=== PATIENT | female | born 1990 | race Caucasian/White ===

== ENCOUNTER 2024-09-20 18:54 | Emergency (ER) | payer OTHER, SELFPAY ==
[2024-09-20 18:55] VITALS: BP 141/90; PULSE 106; RESP 16; TEMP 36.6; O2SAT 98; BMI 19.0
--- NOTE | 2024-09-20 19:00 | ED.WOUNDLAC ---
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 Reports accidentally cutting the finger pad of her left thumb with a knife while cooking. Reports the area bled for approx 1 hour, prompting her to come to the ED for further evaluation. Wound is dressed on arrival. Denies any retained FB. No other injury. Believes her last tetanus was in in 2014. Denies numbness/tingling/weakness to the left hand. Related Data Allergies Allergy/AdvReac Type Severity Reaction Status Date / Time No Known Allergies Allergy Verified 09/20/24 18:58 Review of Systems Review of Systems: Constitutional: No fever, chills, fatigue, night sweats, weight changes ENT/Mouth: No ear pain, hearing loss, nasal congestion, sinus pain, rhinorrhea, sore throat Eyes: No eye pain, swelling, redness, vision changes, discharge Cardio: No chest pain, palpitations, CASILLAS, orthopnea, peripheral edema Pulm: No SOB, cough, sputum, wheezing, dyspnea, hemoptysis GI: No nausea, vomiting, hematemesis, abdominal pain, diarrhea, constipation, hematochezia, melena : No irregular bleeding, dysuria, frequency, urgency, hesitancy, hematuria, flank pain, urinary flow changes, urinary incontinence or retention MSK: No back pain, neck pain, joint pain, myalgias Skin: No lesions, rashes, +laceration to L tumb Neuro: No weakness, numbness, paresthesias, LOC, dizziness, headache Psych: No anxiety/panic, depression, SI/HI, AH/VH All other systems reviewed and are negative. [facility] Past Medical History Attestation statement: The following information was validated with the patient. Source: old records reviewed and nursing notes reviewed Social History Social History Advance Directives: No Advance Directives Information Provided: No Do you have a plan to hurt others: No Plan Physical Exam Vital Signs: Vital Signs: Last Vital Signs Temp 97.9 F 09/20/24 19:48 Pulse 106 H 09/20/24 19:48 Resp 16 09/20/24 19:48 BP 141/90 H 09/20/24 19:48 Pulse Ox 98 09/20/24 19:48 BMI result Body Mass Index 19.0 Hypertensive, tachycardic General: Well appearing, in no acute distress. Skin: +2 cm linear superficial laceration noted to finger pad of left thumb. Bleeding controlled. No retained foreign body. No involvement of deeper structures. Full ROM intact to MCP and DIP. Sensation intact. Finger strength intact. Head: Normocephalic, atraumatic. Ext: +see above Neuro: AOx3. Normal speech. Ambulating with steady gait. Course Course Course Narrative: Laceration thoroughly cleaned. Repaired with 7 3-0 nylon sutures. See procedure note for details. Patient tolerated well. No need for imaging at this time. Tdap booster updated. Advised to return in 7-10 days for suture removal. Patient has remained stable throughout ED visit today. Discussed worrisome signs and symptoms and when to return to the ED. All questions answered at this time. Patient is agreeable with disposition and stable for discharge. Medications Administered Discontinued Medications Generic Name Dose Route Start Last Admin Trade Name Freq PRN Reason Stop Dose Admin Diphtheria/Tetanus/Acell Pertussis 0.5 ml 09/20/24 19:01 09/20/24 19:30 Diphth,Pertus(Acell),Tet Adult 0.5 Ml Syringe IM 09/20/24 19:02 0.5 ml .ONCE ONE Administration Lidocaine HCl 10 ml 09/20/24 19:01 09/20/24 19:29 Lidocaine Hcl 1 % Mpf 5 Ml Vial INFILTRATI 09/20/24 19:02 10 ml ONCE ONE Administration Medical Decision Making Medical Decision Making MDM Narrative: 34 year old right-hand dominant female presents to the ED today for evaluation of laceration to left thumb sustained 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 Patient is hypertensive and tachycardic. Well-appearing. There is a 2 cm linear superficial laceration noted to finger pad of left thumb. Bleeding controlled. No retained foreign body. No involvement of deeper structures. Full ROM intact to MCP and DIP. Sensation intact. Finger strength intact. Differential diagnosis includes abrasion, laceration. Unlikely retained foreign body, ligament/tendon injury, fracture. Plan for Tdap booster, laceration repair and disposition. Differential Diagnosis Differential Diagnoses: The differential diagnosis associated with the presentation includes As above Admission/Observation Not indicated Prescription Management I considered prescription management with: Pain Medication Social Determinants Patient?s care significantly limited by Social Determinants of Health including: Other Social Determinant of Health Procedures Laceration Laceration 1: Site: hand Side (If applicable): left Size (cm): 2 Description: linear Depth: simple, single layer Local Anesthetic: lidocaine 1% Amount of anesthesia used (mL): 10 Pre-repair: wound explored Skin layer closed with: nylon Size (cm): 3-0 Number of sutures: 7 Technique: simple, interrupted Nerve Block Nerve Block 1: Time out performed: Yes Local Anesthetic: lidocaine 1% Amount of anesthesia used (mL): 10 Side: left Nerve Blocks: digital Procedure Successful: Yes Patient Tolerated Procedure: well Complications: none Critical Care Time Critical Care Time Critical Care Time: No Discharge Plan Discharge Clinical Impression: Finger laceration Patient Disposition: Home, Self-Care Instructions: Care For Your Stitches (ED), Laceration (ED) Additional Instructions: You have been evaluated in the Emergency Department today for a laceration to your Your laceration was repaired in the ED with 7 sutures. Your tetanus vaccination was also updated and will be valid for 5-10 years. Please keep the area surrounding the laceration clean and dry. Do not get the area wet for 24 hours. After 24 hours, you may clean the area with a non-scented soap and pat to dry. Please keep the area out of the sunlight for the next 6 months to help prevent scarring.? If you develop redness or swelling at the site of your laceration or note any discharge/ fluid coming from the laceration, please come back to the ER for a wound check. I recommend you take 600mg ibuprofen every 6 hours or tylenol 650mg every 6 hours as needed for pain. If needed, you can alternate these medications so that you take one medication every 3 hours. For example, at noon take ibuprofen, then at 3pm take tylenol, then at 6pm take ibuprofen. Please follow up with your primary care physician in 7-10 days for suture removal. You may also return to the ER or another urgent care facility for this service. Return to the Emergency Department if you experience discharge from your laceration, redness around your laceration, warmth around your laceration, fever, vomiting, numbness, tingling, or any other concerning symptoms. In the case of an emergency call 911. Stand Alone Forms: Work/School Release Interventions: ED Discharge Assessment Last Done: 09/20/24 19:48 Discharge Date/Time: 09/20/24 19:49 Print Language: Upper Sorbian
[2024-09-20] MEDS: Lidocaine HCl 1 % MPF 5 ML VIAL 10 ML INFILTRATI (19:29)
[2024-09-20] MEDS: Diphth,Pertus(ACell),Tet Adult 0.5 ML SYRINGE IM (19:30)
[2024-09-20 19:48] VITALS: BP 141/90; PULSE 106; RESP 16; TEMP 36.6; O2SAT 98
== END 2024-09-20 19:49 | disposition home or self-care (01) ==
PROVIDERS: Emergency Provider Emergency Medicine
DX: S61.012A Laceration without foreign body of left thumb without damage to nail, initial encounter (principal); M79.642 Pain in left hand; W26.0XXA Contact with knife, initial encounter; Y93.G3 Activity, cooking and baking; Y92.9 Unspecified place or not applicable; Y99.8 Other external cause status; Z23 Encounter for immunization
CPT/HCPCS: 12001; 90471; 90715; 99282; 99284; J2003

== ENCOUNTER 2024-11-07 15:31 | Outpatient (AMB) | payer BC, SELFPAY ==
--- OUTSIDE RECORDS SUMMARY | 2024-11-07 15:34 | XMS_ITS | Clinical Summary ---
Author Organization [facility] Address [address] [place] [phone] Phone Care Team Providers Care Dining Server Name Role Phone Pcp, Unknown Primary Care Provider Unavailabl e Allergies No known active allergies Medications aspirin-acetami nophen-caffeine (EXCEDRIN MIGRAINE) 250-250-65 mg per tablet Take by mouth. Active predniSONE (DELTASONE) 20 MG tablet 3 tablets X 3 days, 2 tablets X 3 days , 1 tablet X 3 days 18 tablet 10/11/2024 Active Encounters Date Type Department Care Team Description 10/11/2024 10:12 AM EDT Hospital Encounter Urgent Care [address] [place] [phone] Maday Long CNP 10/11/2024 9:40 AM EDT Office Visit [facility] at [address] [phone] Maday Long CNP Acute right-sided low back pain with right-sided sciatica (Primary Dx) from Last 3 Months Social History Tobacco Use Types Packs/Day Years [...] on file Sexual Orientation Not on file Last Filed Vital Signs Vital Sign Reading Time Taken Comments Blood Pressure 152/94 10/11/2024 10:27 AM EDT Pulse 121 10/11/2024 10:27 AM EDT Temperature 36.1 C (97 F) 10/11/2024 9:54 AM EDT Respiratory Rate 19 10/11/2024 9:54 AM EDT Oxygen Saturation 100% 10/11/2024 9:54 AM EDT Inhaled Oxygen Concentration - - Weight - - Height - - Body Mass Index - - Plan of Treatment Health Maintenance Due Date Last Done Comments DEPRESSION SCREENING 2002 SMOKING Hx and SMOKELESS TOBACCO SCREENING 09/12/2003 HEPATITIS C SCREENING 2008 HIV ONE-TIME SCREENING (18-65 YEARS) 2008 PAP SMEAR 09/12/2011 COVID-19 VACCINE ( season) 2023 06/30/2022, 12/15/2020 Adult Td,Tdap Booster 09/20/2034 09/20/2024 , 07/27/2015, 06/18/2012, Additional history exists HIB VACCINES Completed 12/16/1991, 12/1990, 01/14/1991, Additional history exists MENINGOCOCCAL VACCINES (ACWY) Completed 09/22/2008 HEPATITIS A VACCINES Aged Out No long er eligible based on patient's age to complete this topic MENINGOCOCCAL VACCINES (B) Aged Out N o longer eligible based on patient's age to complete this topic PNEUMOCOCCAL VACCINES (0-49 years) Aged Out No longer eligible based on patient's age to complete this topic Medical Devices Not on file Procedures Procedure Name Priority Date/Time Associated Diagnosis Comments XR LUMBOSACRAL SPINE 4 OR MORE VIEWS Urgent/patient waiting 10/11/2024 10:19 AM EDT Acute right-sided low back pain with right-sided sciatica from Last 3 Months Results * XR LUMBOSACRAL SPINE 4 OR MORE VIEWS (10/11/2024 10:19 AM EDT) Anatomical Region Laterality Modality L-spine Computed Radiogr aphy 10/11/2024 11:0 3 AM EDT Impressions 10/11/2024 11:09 AM EDT No displaced fracture of the lumbar spine. Narrative 10/11/2024 11:09 AM EDT XR LUMBOSACRAL SPINE 4 OR MORE VIEWS Referring clinician's provided indication for this examination in Epic: Pain; no trauma/ + neuropathy, Hx: L4-5 [...] fracture of the lumbar spine. Maday Long TRANSFER STATION ATTENDANT IMG XR SPINE Final Resul t from Last 3 Months Insurance [facility] [employer] Care Teams Dining Server Relationship Specialty Start Date End Date Pcp, Unknown PCP - General 10/11/24 Additional Source Comments The information contained in this document represents components of the legal health record. It is not the complete legal health record.[facility]
--- OUTSIDE RECORDS SUMMARY | 2024-11-07 15:34 | XMS_ITS | Clinical Summary ---
Author Organization [facility] Address [address] [place] [address] Care Team Providers Care Golf Caddie Name Role Phone Angie Wilde MD Primary Care Provider [phone] Allergies No known active allergies Medications L norgest/e.estrad ioL-e.estrad (SEASONIQUE) 0.15 mg-30 mcg (84)/10 mcg (7) per tablet Take 1 tablet by mouth 1 (one) time each day. 09/02/2020 Active aspirin-acetamin ophen-caffeine (EXCEDRIN MIGRAINE) 250-250-65 mg per tablet Take by mouth. Active Active Problems Problem Noted Date Diagnosed Date Migraine without aura 12/07/2009 Overview (04/02/2024): IMO update Underweight 05/23/2005 Immunizations Name Administration Dates Next Due DTP 07/31/1995, 2,03/25/1991,01/14,1990 WHyN-INS-IPI (Pentacel) 2mo to less than 5yo 12/16/1991,03/25/1991,01/14/1991,11/12 Hepatitis B Pediatric (Enger ix B; Recombivax HB) to less than 20 yo 09/18/1996,07/31/1995,06/28/1995 Influenza trivalent, with pr eservative (Fluzone; Afluria) 6mo and older 05/15/2013 [employer] SARS-CoV-2 COVID -19, vector-nr, [id number], preservative free 12/15/2020 MMR, measles mumps and rubel la Live (Priorix; M-M-R II) 12mo and older 09/22/1994,12/16/1991 Meningococcal MCV4P 09/22/2008 OPV 07/31/1995, 2,01/14/1991,11/12 PPD Test 02/21/2011 Td Tetanus diptheria (Tdvax) 7yo and older 08/16/2002 Tdap Tetanus diptheria acell ular pertussis (Boostrix; Adacel) 7yo and older 06/18/2012 Varicella live (Varivax) 12m o and older 06/18/2012,06/27/1995 Surgical History Surgery Date Site/Laterality Comments BACK SURGERY 09/25 PROCEDURE: HISTORICAL BACK SURGERY; COMMENT: herniated disk repair Medical History Medical History Date Comments Undiagnosed cardiac murmurs DX:U ndiagnosed cardiac murmurs; COMMENT: 3 DAYS-RESOLVED BY 2 WKS-NL ECG, CXR Wheezing DX:Wheezing Other symptoms referable to ankle and foot joint 1995 DX:Other symptoms referable to ankle and foot joint; COMMENT: L FOOT MASS 1995 (WART) Underweight DX:Underweight 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; COMMENT: POSTERIOR NECK Influenza with other manifestations 04/21 DX:Influenza with other manifestations Lumbar disc herniation DX:Lumbar disc herniation; COMMENT: L4-5 with herniation, radiculopathy, Dr Holloway Family History Medical History Relation Name Comments Glaucoma Father Lung cancer Maternal Grandmother Hypertension Mother Other: TACHYCARDIA Mother Cancer of Small Bowel Other Hypertension Other PATERNAL SIDE Other: CARDIOPULMO Paternal Grandfather D ECEASED Breast cancer Paternal Grandmother Colon cancer Neg Hx Kidney cancer Neg Hx Ovarian cancer Neg Hx Pancreatic cancer Neg Hx Prostate cancer Neg Hx Uterine cancer Neg Hx Relation Name Status Comments Father Alive [id number] [place] Maternal Grandmother Mother Alive IN Other Paternal Grandfather Paternal Grandmother Social History Tobacco Use Types Packs/Day Years Used Date Smoking Tobacco: Never Smokeless Tobacco: Never Alcohol Use Standard Drinks/Week Comments Yes 0 (1 standard drink = 0.6 oz pur e alcohol) Comments Unknown Sex and Gender Information Value Date Recorded Sex Assigned at Not on file Legal Sex Female 8:43 PM EST Gender Identity Not on file Sexual Orientation Not on file Obstetrics History Last Filed Vital Signs Vital Sign Reading Time Taken Comments Blood Pressure 108/70 04/03/2023 2:27 PM EST Pulse 86 04/03/2023 2:27 PM EST Temperature - - Respiratory Rate - - Oxygen Saturation - - Inhaled Oxygen Concentration - - Weight 63.1 kg (139 lb 3.2 oz) 04/03/2023 2:27 P M EST Height 182.9 cm (6') 04/03/2023 2:27 PM EST Body Mass Index 18.88 04/03/2023 2:27 PM EST Plan of Treatment Health Maintenance Due Date Last Done Comments HIV Screening 05/23/2019 Hepatitis C Screening 05/23/2019 Social Influencers of Health Screening 05/23/2019 DTaP,Tdap,and Td Vaccines (8 - Td or Tdap) 06/18/2022 06/18/2012, 08/16/2002, 07/31/1995, Additional history exists COVID-19 Vaccine () 12/17/2023 12/15/2020 Depression Screening 04/17/2024 Influenza Vaccine (#1) 2024 05/15/2013 Cervical Cancer Screening: HPV 04/03/2028 04/03/2023 HIB Vaccines Completed 12/16/1991, 12/1990, 01/14/1991, Additional history exists MMR Vaccines Completed 09/22/1994, 12/16/1991 IPV Vaccines Completed 07/31/1995, 03/17, 12/16/1991, Additional history exists Hepatitis B Vaccines Completed 09/18/1996, 07/31/1995, 06/28/1995 Meningococcal ACWY Vaccine Completed 09/22/2008 Varicella Vaccines Aged Out 06/18/2012, 06/27/1995 No longer eligible based on patient's age to complete this topic HPV Vaccines Aged Out No longer eligi ble based on patient's age to complete this topic Hepatitis A Vaccines Aged Out No long er eligible based on patient's age to complete this topic Meningococcal B Vaccine Aged Out No l onger eligible based on patient's age to complete this topic Pneumococcal Vaccine: Pediatrics (0 to 5 Years) and At-Risk Patients (6 to 49 Years) Aged Out No longer eligible based on patient's age to complete this topic RSV Immunization Patients Under 20 months Aged Out No longer eligible based on patient's age to complete this topic Procedures Procedure Name Priority Date/Time Associated Diagnosis Comments HPV Routine 04/03/2023 from Last 3 Months or Most Recently Relevant to Health Maintenance Results * Cervical Cancer Screening: HPV (04/03/2023) Cervical Cancer Screening: HPV negative, abstracted Historical Provider HEALTH MAINTENANCE Final Result from Last 3 Months or Most Recently Relevant to Health Maintenance Care Teams Golf Caddie Relationship Specialty Start Date End Date Angie Wilde MD [address] [place] [phone] PCP - General 03/03/22
--- OUTSIDE RECORDS SUMMARY | 2024-11-07 15:34 | XMS_ITS ---
Author Name [facility] Organization Unknown Care Team Organization Name Specialty Phone Email Start Date End Da te [facility] RASHEED GERMAN Primary Care [email or web address] 10/20/2022 12/04/2023 [facility] NULL Primary Care 04/25/2022 12/04/2023 [facility] NULL Primary Care 02/22/2022 12/04/2023
--- NOTE | 2024-11-07 15:49 | MHC.PC.OV ---
Vital Signs 11/07/24 15:55 Height 6 ft Weight 136 lb BMI 18.4 BP 132/82 Blood Pressure Location Lt brachial Position Sitting Respiration 16 Pulse 117 H Pulse Source Pulse Oximeter Temp 98.2 F Temp Source Temporal Artery Scan Pulse Oximetry (%) 98 Oxygen Delivery Method Room Air Intake Visit Reasons: Back pain Intake Note: Charlene presents in the office today to establish care. Patient is suffering from back pain. Allergies No Known Allergies Allergy (Verified 11/07/24 15:51) Tobacco use date assessed: 11/07/24 Dental Screening Dental Screen Date: 11/07/24 Did you have a dental visit in the last 12 months?: Yes Did you have a dental problem in the last 6 months where you did not have access to dental care?: No Was dental information given to patient?: Patient has dentist HPI HPI Comments History of Present Illness Details This is a 34-year-old female with a past medical history of migraines and L4-L5 microdiskectomy presenting for back pain. She is a new patient. The patient had microdiskectomy of L4-L5 due to a herniated disc at age [age] years old. They are unsure why she had the her needed disc, but she notes that several of her family members have similar issues. The surgery was done at [facility] by CHIQUI. Her pain which was in the right sciatic notch radiating down her leg associated with tingling and numbness resolved following surgery. She was told that she had a bulging disc at L5-S1 at that time. She did well up until the 1st week of September when she sat down on her couch and felt something pull in her lower back. She develops severe pain in the right lower back radiating down the right leg associated with tingling and numbness in her leg. She went to [facility] urgent care. She was given a taper of prednisone, and she had a negative x-ray of her lower back. The prednisone helped only a little. She has constant aching, sharp pain every day rated as a 5-9/10. The pain radiates from the right lower back and buttock down her right leg. It is worse when she bends forward or leans back. 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 She is taking ibuprofen 800 mg 3 times a day and acetaminophen 1000 mg 2-3 times per day. It is minimally helpful. She is having a lot of difficulty sleeping. She has been seeing the chiropractor 2-3 times per week since it started in September. She denies loss of bowel or bladder control, numbness or tingling in the saddle distribution or weakness in her legs. No fevers or chills. She has a secondary concern about migraine headaches which she has had since she was an adolescent. She has severe migraines for the 1st 3 days prior to her menstrual period every month. They are associated with nausea and vomiting. She has taken Fioricet in the past. Headaches are associated with light sensitivity. ROS: Constitutional: No unexplained weight loss, fever, chills, fatigue or night sweats. Eyes: No vision changes, blurry vision, double vision, eye pain, eye redness, eye discharge. ENT: No hearing loss, sneezing, congestion, runny nose or sore throat. Respiratory: No shortness of breath, cough or sputum production. Cardiovascular: No chest pain, chest pressure or chest discomfort. No palpitations or pedal edema. Gastrointestinal: No anorexia, nausea, vomiting or diarrhea. No abdominal pain or blood in stool. Genitourinary: No dysuria, hematuria, urinary frequency. Neurologic: No headache, dizziness, syncope, unilateral weakness, ataxia, numbness or tingling in the extremities. Musculoskeletal: No muscle pain, back pain, joint pain or swelling. Hematologic/Lymphatics: No bleeding or bruising. No painful lymph nodes. Skin: No rash or itching. Endocrine: No cold or heat intolerance. No polyuria or polydipsia. Psychiatric: No depression or anxiety. No SI/HI. Physical exam: Constitutional: Alert, in no distress. Neck: Supple, Full range of motion. No lymphadenopathy. No palpable thyroid masses. Respiratory: Clear to auscultation. Cardiovascular: S1 S2 regular. No murmurs Neurologic: No focal neurological deficits. Symmetric patellar reflexes. Moves all extremities spontaneously. Sensation intact bilaterally. Lower extremity strength 5/5 bilaterally. No footdrop. Normal toe walking. Skin: No rashes Musculoskeletal: Limited lumbar flexion and extension, and patient winces during exam. Positive right straight leg raise. Raising the left leg causes pain in the right lower back and sciatic notch. Extremities: Warm and well perfused. No clubbing, cyanosis or edema. Intact peripheral pulses bilaterally. Psychiatric: Normal mood and affect [facility] Medical History (Updated 11/07/24 @ 17:21 by SAPPHIRE Olmos) Screening for cardiovascular condition Lumbosacral radiculitis Intermittent palpitations Degenerative disc disease, lumbar Migraine Surgical History (Updated 11/07/24 @ 16:02 by Azul Quarles MA) History of microdiscectomy Family History (Updated 11/07/24 @ 15:54 by Azul Quarles MA) Mother Hypertension Thyroid disease Father Hypertension Social History (Updated 11/07/24 @ 15:54 by Azul Quarles MA) Housing: House Alcohol intake: never Patient Tobacco Use Status: Never used Tobacco e-Cigarette/Vaping Use: Never Used Second Hand Smoke Exposure: No service: No Current occupational status: employed 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 1. Little interest or pleasure in doing things: not at all 2. Feeling down, depressed, or hopeless: not at all 3. Trouble falling or staying asleep, or sleeping too much: several days 4. Feeling tired or having little energy: several days 5. Poor appetite or overeating: not at all 6. Feeling bad about yourself - or that you are a failure or have let yourself or your family down: not at all 7. Trouble concentrating on things, such as reading the newspaper or watching television: not at all 8. Moving or speaking so slowly that other people could have noticed. Or the opposite - being so fidgety or restless that you have been moving around a lot more than usual: not at all 9. Thoughts that you would be better off or of hurting yourself in some way: not at all Total score: 2 Depression Screening Interpretation: Negative Depression Screening Done: Yes 59332 - PHQ-9 Billing: Yes Source: Developed by Drs. Linwood Strauss, Sejal Rios, Edwardo Campos and colleagues, with an educational jodie from [employer]. Thrive Questionnaire Date Thrive assessed: 11/07/24 I am a: Patient What is your living situation today?: I have a steady place to live Within the past 12 months, did the food you bought not last and you didn't have the money to get more?: Never true Within the past 12 months, did you worry whether your food would run out before you got money to buy more?: Never true Do you have trouble paying for medicines?: No Do you have trouble getting transportation to medical appointments?: No Do you have trouble paying your heating and electricity bill?: No Do you have trouble taking care of your child, family member or friend?: No Do you have trouble with day-to-day activities such as bathing, preparing meals, shopping, managing finances, etc.?: No Are you currently unemployed and looking for a job?: No Are you interested in more education?: No Please select the resources that you would like help with: None Currently or been in a relationship where the following occur: No concerns reported THRIVE Score: 0 AUDIT C Alcohol Use Questionnaire (AUDIT-C) 1. How often do you have a drink containing alcohol?: Never 3. How often do you have six or more drinks on one occasion?: Never Total Score: 0 CARMINA-7 AMB Questionnaire CARMINA-7 Date CARMINA - 7 assessed: 11/07/24 Feeling nervous, anxious, or on edge: 0 = Not at all Not being able to stop or control worryin = Not at all Worrying too much about different things: 0 = Not at all Trouble relaxin = Not at all Being so restless that it is hard to sit still: 0 = Not at all Becoming easily annoyed or irritable: 0 = Not at all Feeling afraid as if something awful might happen: 0 = Not at all Total CARMINA-7 score (0-4 normal; 5-9 mild; 10-14 moderate; 15-21 severe): 0 Source: Developed by Drs. Linwood Strauss, Sejal Rios, Edwardo Campos and colleagues, with an educational jodie from [employer]. CARMINA-7 Assessment Billing CARMINA-7 Assessment Tool: CARMINA-7 Assessment 44731 Physical exam (Primary Care) Vital Signs: Last Vital Signs Temp 98.2 F 11/07/24 15:55 Pulse 117 H 11/07/24 15:55 Resp 16 11/07/24 15:55 BP 132/82 11/07/24 15:55 Pulse Ox 98 11/07/24 15:55 Oxygen Delivery Method Room Air 11/07/24 15:55 BMI result Body Mass Index 18.4 Tobacco/Smoking Status: Tobacco use Status Tobacco use date assessed 11/07/24 11/07/24 16:02 Patient Tobacco Use Status Never used Tobacco 11/07/24 16:02 e-Cigarette/Vaping Use Never Used 11/07/24 16:02 PHQ-9: PHQ-9 Score PHQ-9: Total score 2 11/07/24 16:08 Depression Screening Interpretation: Negative Thrive Assessment: Date of Thrive Assessment Date Thrive assessed 11/07/24 11/07/24 16:02 Currently or been in a relationship where the following occur: No concerns reported Coding Level of Care Code New Pt Level 4 (47091) Complex EM visit Add On G2211 Diagnoses Lumbosacral radiculitis M54.17 Migraine with aura and without status migrainosus, not intractable G43.109 Migraine type: migraine (< 15 days per month) with aura Status migrainosus presence: without status migrainosus Intractability: not intractable Screening for cardiovascular condition Z13.6 Additional Codes CARMINA-7 Assessment Billing - CARMINA-7 Assessment Tool: CARMINA-7 Assessment 14631 ([id number]) PHQ-9 - 67362 - PHQ-9 Billing: Yes ([id number]) Assessment & Plan Assessment & Plan (1) Lumbosacral radiculitis: Code(s): M54.17 - Radiculopathy, lumbosacral region Category: Medical Plan: The patient has failed more than 6 weeks of conservative therapy which included chiropractic intervention, oral steroids and NSAIDs. She had a negative x-ray at urgent care. MRI ordered for further evaluation. I will refer her to the spine clinic. Prescribed sulindac 200 mg twice daily with food as needed. Do not take with other NSAIDs. Side effects reviewed. We will use tramadol for pain control pending further workup and evaluation. We discussed this is a habit-forming medication. It can cause sedation and dizziness. She was advised not to work, drive, operate heavy machinery or drink alcohol with this medicine. Warning signs warranting ER evaluation reviewed. (2) Migraine: Code(s): G43.909 - Migraine, unspecified, not intractable, without status migrainosus Category: Medical Qualifiers: Migraine type: migraine (< 15 days per month) with aura Status migrainosus presence: without status migrainosus Intractability: not intractable Qualified Code(s): G43.109 - Migraine with aura, not intractable, without status migrainosus Plan: Prescribed trial of Imitrex to use as needed for migraines. She can use Zofran as needed for nausea and vomiting. Side effects and administration of medications reviewed. Referred to [facility] neuro headache clinic. Reviewed the importance of stress reduction when possible, hydration and adequate nutrition. (3) Screening for cardiovascular condition: Code(s): Z13.6 - Encounter for screening for cardiovascular disorders Category: Medical Plan She will schedule a physical exam. She will have lab work done. Orders: Orders Complete Blood Count no Diff Today G43.909 - Migraine, unspecified, not intractable, without status migrainosus, M54.17 - Radiculopathy, lumbosacral region, Z13.6 - Encounter for screening for cardiovascular disorders TSH reflex Free T4 Today G43.909 - Migraine, unspecified, not intractable, without status migrainosus, M54.17 - Radiculopathy, lumbosacral region, Z13.6 - Encounter for screening for cardiovascular disorders Vitamin D 25-OH (D2 and D3) Today G43.909 - Migraine, unspecified, not intractable, without status migrainosus, M54.17 - Radiculopathy, lumbosacral region, Z13.6 - Encounter for screening for cardiovascular disorders IRON PROFILE Today D64.9 - Anemia, unspecified, G43.909 - Migraine, unspecified, not intractable, without status migrainosus, M54.17 - Radiculopathy, lumbosacral region, Z13.6 - Encounter for screening for cardiovascular disorders MR lumbar spine wo con Today G43.909 - Migraine, unspecified, not intractable, without status migrainosus, M54.17 - Radiculopathy, lumbosacral region Lipid Panel Today G43.909 - Migraine, unspecified, not intractable, without status migrainosus, M54.17 - Radiculopathy, lumbosacral region, Z13.6 - Encounter for screening for cardiovascular disorders Comprehensive Met. Panel Today G43.909 - Migraine, unspecified, not intractable, without status migrainosus, M54.17 - Radiculopathy, lumbosacral region, Z13.6 - Encounter for screening for cardiovascular disorders Vitamin B12 and Folate Today D64.9 - Anemia, unspecified, G43.909 - Migraine, unspecified, not intractable, without status migrainosus, M54.17 - Radiculopathy, lumbosacral region, Z13.6 - Encounter for screening for cardiovascular disorders Ferritin Today D64.9 - Anemia, unspecified, G43.909 - Migraine, unspecified, not intractable, without status migrainosus, M54.17 - Radiculopathy, lumbosacral region, Z13.6 - Encounter for screening for cardiovascular disorders Referrals Neurology Referral G43.909 - Migraine, unspecified, not intractable, without status migrainosus Neuro Spine Referral M54.17 - Radiculopathy, lumbosacral region Medications: New tramadol 50 mg PO Q8H PRN 21 tabs 0RF pain, severe 7 days sulindac 200 mg PO BID PRN 60 tabs 0RF pain ondansetron HCl 4 mg PO Q8H PRN 60 tabs 0RF nausea and vomiting sumatriptan succinate (Imitrex) take 1 tab at onset of headache; if no relief may repeat 1 tab after at least 2 hrs; max = 4 tabs/24 hr PO 12 tabs 5RF
[2024-11-07 15:55] VITALS: BP 132/82; PULSE 117; RESP 16; TEMP 36.8; O2SAT 98; BMI 18.4
== END 2024-11-07 16:26 | disposition home or self-care (01) ==
LOC: HO.HMCFM 15:31
PROVIDERS: PCP Physician Assistant Medical; Visit Provider Physician Assistant Medical
DX: M54.17 Radiculopathy, lumbosacral region (principal); G43.109 Migraine with aura, not intractable, without status migrainosus; Z13.6 Encounter for screening for cardiovascular disorders

== ENCOUNTER → 2024-11-07 15:31 | Outpatient (BNVA) | payer BC, SELFPAY | PROVIDERS: PCP Physician Assistant Medical; Visit Provider Physician Assistant Medical | DX: Z76.89 Persons encountering health services in other specified circumstances (principal); M54.17 Radiculopathy, lumbosacral region; G43.109 Migraine with aura, not intractable, without status migrainosus; Z13.31 Encounter for screening for depression; Z13.39 Encounter for screening examination for other mental health and behavioral disorders | CPT/HCPCS: 96127 ==

== ENCOUNTER 2024-11-15 19:54 | Outpatient (REF) | payer OTHER, SELFPAY ==
--- NOTE | ~2024-11-15 | MR_ITS ---
CLINICAL HISTORY: M54.17 - Radiculopathy, lumbosacral region MR lumbar spine without gadolinium Comparison: None Findings: No plain films are available for comparison. Thus, for numbering purposes, 5 lumbar type vertebral bodies will be presumed. This should be confirmed with plain films prior to any lumbar spinal intervention.2 mm of retrolisthesis of L4 on L5. No acute fracture or pathologic bone lesion. Mild reactive signal within the endplates adjacent to the L4-L5 and L5-S1 intervertebral discs. Right L4-L5 hemilaminotomy. Cauda equina and conus medullaris within normal limits. Paraspinous musculature intact. No paraspinous masses. L1-L2: Mild facet and ligamentum flavum hypertrophy. No significant canal or foraminal stenosis. L2-L3:Mild facet and ligamentum flavum hypertrophy. Mild epidural lipomatosis. No significant canal or foraminal stenosis. L3-L4:Mild facet and ligamentum flavum hypertrophy. Mild epidural lipomatosis. No significant canal or foraminal stenosis. L4-L5: Moderate disc desiccation. Mild disc height loss and diffuse disc bulge. Mild bilateral facet and ligamentum flavum hypertrophy. Mild canal stenosis. Mild bilateral foraminal stenosis. Heterogeneous T2 signal intensity material surrounding the right L5 nerve root within the lateral recess with possible mild right L5 nerve root compression. L5-S1:Moderate disc height loss and desiccation. Mild diffuse disc bulge. Mild bilateral facet hypertrophy. Mild epidural lipomatosis. Mild canal stenosis. Mild bilateral foraminal stenosis. IMPRESSION: 1. Postsurgical sequelae. 2. Multilevel degenerative disc and facet disease, as well as ligamentum flavum hypertrophy. 3. Mild multilevel canal and foraminal stenoses. 4. Possible scar tissue surrounding the right L5 nerve root within the lateral recess at L4-L5 with possible right L5 nerve root compression. Correlation with clinical symptoms is recommended to assess relevance of these findings. This document has been electronically signed by: Divya Tuttle MD on 11/18/2024 15:00:35
--- OUTSIDE RECORDS SUMMARY | 2024-11-15 20:02 | XMS_ITS | Clinical Summary ---
Author Organization [facility] Address [address] [place] [address] Care Team Providers Care Reimbursement Consultant Name Role Phone Angie Wilde MD Primary Care Provider Allergies No known active allergies Medications L [...] Administration Dates Next Due DTP 07/31/1995, 2,03/25/1991,01/14,1990 [id number] (Pentacel) 2mo to less than 5yo 12/16/1991,03/25/1991,01/14/1991,11/12 Hepatitis B Pediatric (Enger ix B; Recombivax HB) to less than 20 yo 09/18/1996,07/31/1995,06/28/1995 Influenza trivalent, with pr eservative (Fluzone; Afluria) 6mo and older 05/15/2013 [employer] SARS-CoV-2 COVID -19, vector-nr, rS-Ad26, preservative free [...] Hx Relation Name Status Comments Father Alive [id number] [place] Maternal Grandmother Mother Alive [place] Other [...] Recently Relevant to Health Maintenance Care Teams Reimbursement Consultant Relationship Specialty Start Date End Date Angie Wilde MD [address] [place] [address] PCP - General 03/03/22
--- OUTSIDE RECORDS SUMMARY | 2024-11-15 20:02 | XMS_ITS | Clinical Summary ---
Author Organization [facility] Address [address] [place] [phone] Phone Care Team Providers Care Medical Affairs Director Name Role Phone Pcp, Unknown Primary Care [...] Description 10/11/2024 10:12 AM EDT Hospital Encounter [facility] [address] [place] [id number] Maday Long CNP 10/11/2024 9:40 AM EDT Office Visit [facility] at [address] [address] Maday Long CNP Acute right-sided low back [...] fracture of the lumbar spine. Maday Long FORDER OPERATOR IMG XR SPINE Final Resul t from Last 3 Months Insurance [facility] [employer] Care Teams Medical Affairs Director Relationship Specialty Start Date End Date Pcp, Unknown PCP - General 10/11/24 Additional Source Comments The information contained in this document represents components of the legal health record. It is not the complete legal health record.[facility]
== END 2024-11-15 19:55 | disposition home or self-care (01) ==
LOC: HO.MRI 19:54
PROVIDERS: PCP Physician Assistant Medical; Visit Provider Physician Assistant Medical
DX: M54.17 Radiculopathy, lumbosacral region (principal); G43.909 Migraine, unspecified, not intractable, without status migrainosus
CPT/HCPCS: 72148

== ENCOUNTER → 2024-11-15 19:54 | Outpatient (BNV) | payer OTHER, SELFPAY | PROVIDERS: PCP Physician Assistant Medical; Visit Provider Radiology Diagnostic Radiology | DX: M51.360 Other intervertebral disc degeneration, lumbar region with discogenic back pain only (principal) | CPT/HCPCS: 72148 ==

== ENCOUNTER 2024-11-28 12:48 | Outpatient (AMB) | payer OTHER, SELFPAY ==
--- NOTE | 2024-11-28 13:04 | HO.SPINEOV ---
Intake Visit Reasons: lumbar radiculopathy Intake Note: Ms. Reinoso is here today c/o low back pain. MRI done @ [facility]. Matting Press Tender Required: No Allergies No Known Allergies Allergy (Verified 11/07/24 15:51) Assessment & Plan Assessment & Plan (1) Lumbosacral radiculitis: Code(s): M54.17 - Radiculopathy, lumbosacral region Category: Medical Plan Dear Neda, Thank you for referring Mrs Reinoso to our office today. She is 34-year-old female with previous history of a right L4-5 microdiskectomy done in [address] Manzano at [facility]. After that surgery she had complete relief of her symptoms until sometime in September when she was sitting down on a couch and immediately felt a pop. At that point she felt pain shooting down her right leg with tingling and numbness going into her foot. She ultimately started herself on Tylenol and a leave and did some basic conservative management including foam rollers, stretching exercises that she learned at her previous physical therapy encounter before her surgery, and stretching. Unfortunately it has not been helping. She has good days and bad days but the symptoms are persistently irritating and limit what she can do. She underwent an MRI and came in to see us today for evaluation with the MRI showing possible compression of the right L5 nerve root. PMH: Otherwise healthy, previous back surgery Social hx: She has not smoke, drink or use any recreational drugs Medications: Tramadol, sulindac, Tylenol, leave Allergies: None Physical exam: Awake alert oriented, no acute distress but she does have an antalgic gait, positive straight leg raise at about 20 degrees, strength is normal, reflexes absent at the Achilles. Imaging review: Lumbar MRI done at [place] shows postsurgical changes at L4-5 on the right side. Although the study was done without contrast. It appears to me on this study T2 sagittal there appears to be a disc herniation compressing the right L5 nerve root. It is hard to confirm on the axial imaging without contrast. She has some moderate disc degeneration at L5-S1 but nothing severe. Impression: 34-year-old female with a previous history of a right L4-5 microdiskectomy in 2010 with complete relief of symptoms, presents now with what sounds like an acute onset of right L5 radiculopathy down her leg with tingling into her foot. Although her MRIs done without gadolinium, it looks to me like there is something on the sagittal view compressing the right L5 nerve coming from the L4-5 disc space, appears to be a disc herniation. Although the radiologist was not overwhelmed with the findings, it looks to me like there is enough there to explain her symptoms. I am going to start her on physical therapy as a conservative measure to try before surgery, but it sounds to me like she may be heading in the direction of a redo microdiskectomy at L4-5. I will review the films with Dr. Seals to see if he agrees. I will call her after I have a chance to review everything with him. Thank you for allowing us to care for your patient. The total time spent with this visit with this patient was 45 minutes reviewing history, physical exam, lumbar imaging review, and implementation of treatment plan or further diagnostic testing Randy Seals MD,PhD [facility] Orders: Orders PT Evaluation and Treatment Today M54.17 - Radiculopathy, lumbosacral region Coding Level of Care Code New Pt Level 4 (24723) Diagnoses Lumbosacral radiculitis M54.17
--- OUTSIDE RECORDS SUMMARY | 2024-11-28 13:34 | XMS_ITS | Clinical Summary ---
Author Organization [facility] Address [address] [place] [address] Care Team Providers Care Keyboarding Teacher Name Role Phone Angie Wilde MD Primary [...] Administration Dates Next Due DTP 07/31/1995, 2,03/25/1991,01/14,1990 [id number] (Pentacel) 2mo to less than 5yo 12/16/1991,03/25/1991,01/14/1991,11/12 Hepatitis B Pediatric (Enger ix B; Recombivax HB) to less than 20 yo 09/18/1996,07/31/1995,06/28/1995 Influenza trivalent, with pr eservative (Fluzone; Afluria) 6mo and older 05/15/2013 [employer] SARS-CoV-2 COVID -19, vector-nr, rS-Ad26, preservative free [...] Hx Relation Name Status Comments Father Alive [id number] [place] Maternal Grandmother Mother Alive [place] Other [...] Recently Relevant to Health Maintenance Care Teams Keyboarding Teacher Relationship Specialty Start Date End Date Angie Wilde MD [address] [place] [address] PCP - General 03/03/22
--- OUTSIDE RECORDS SUMMARY | 2024-11-28 13:34 | XMS_ITS | Clinical Summary ---
Author Organization [facility] Address [address] [place] [address] Phone Care Team Providers Care Supervisor Special Services Name Role Phone Pcp, Unknown Primary Care [...] Description 10/11/2024 10:12 AM EDT Hospital Encounter [facility] [address] [place] [address] Maday Long CNP 10/11/2024 9:40 AM EDT Office Visit [facility] at [address] [address] Maday Long CNP Acute right-sided low back [...] fracture of the lumbar spine. Maday Long SLATE WORKER IMG XR SPINE Final Resul t from Last 3 Months Insurance [facility] BENEFITS ADMINISTRATORS [employer] BENEFITS ADMINISTRATORS [employer] BENEFITS ADMINISTRATORS [employer] BENEFITS ADMINISTRATORS [employer] BENEFITS ADMINISTRATORS [employer] BENEFITS ADMINISTRATORS Care Teams Supervisor Special Services Relationship Specialty Start Date End Date Pcp, Unknown PCP - General 10/11/24 Additional Source Comments The information contained in this document represents components of the legal health record. It is not the complete legal health record.[facility]
== END 2024-11-28 13:23 | disposition home or self-care (01) ==
LOC: HO.HNS 12:49
PROVIDERS: PCP Physician Assistant Medical; Referring Provider Physician Assistant Medical; Visit Provider Physician Assistant
DX: M54.17 Radiculopathy, lumbosacral region (principal)
CPT/HCPCS: 99204

== ENCOUNTER 2024-12-26 14:13 | Outpatient (AMB) | payer OTHER, SELFPAY ==
--- OUTSIDE RECORDS SUMMARY | 2024-10-11 10:12 | XMS_ITS | Encounter Summary ---
Author Organization [facility] Address [address] [place] [phone] Phone Care Team Providers Care Animator Name Role Phone Pcp, Unknown Primary Care Provider Unavailabl e Encounter Details Date Type Department Care Team (Late st Contact Info) Description 10/11/2024 10:12 AM EDT Hospital Encounter [facility] [address] [place] [id number] Maday Long CNP [address] [place] [phone] [email or web address] Social History Tobacco Use Types Packs/Day Years Used Date Smoking Tobacco: Never Assessed Education Answer Date Recorded Are you interested in more education? Not on diane e 10/11/2024 Are you concerned about learning? Not on file 10/11/2024 No 10/11/2024 No 10/11/2024 Digital Access Answer Date Recorded No 10/11/2024 No 10/11/2024 Reliable internet access at home? Not on file 10/11/2024 Device with a working camera? Not on file Comments Unknown Sex and Gender Information Value Date Recorded Sex Assigned at Not on file Legal Sex Female 5:43 AM EDT Gender Identity Not on file Sexual Orientation Not on file documented as of this encounter Plan of Treatment Not on file documented as of this encounter Procedures Procedure Name Priority Date/Time Associated Diagnosis Comments XR LUMBOSACRAL SPINE 4 OR MORE VIEWS Urgent/patient waiting 10/11/2024 10:19 AM EDT Acute right-sided low back pain with right-sided sciatica documented in this encounter Results * XR LUMBOSACRAL SPINE 4 OR MORE VIEWS (10/11/2024 10:19 AM EDT) Anatomical Region Laterality Modality L-spine Computed Radiogr aphy 10/11/2024 11:0 3 AM EDT Impressions 10/11/2024 11:09 AM EDT No displaced fracture of the lumbar spine. Narrative 10/11/2024 11:09 AM EDT XR LUMBOSACRAL SPINE 4 OR MORE VIEWS Referring clinician's provided indication for this examination in [facility]: Pain; no trauma/ + neuropathy, Hx: L4-5 microdiscectomy 2010 COMPARISON: None. FINDINGS: Normal alignment. Normal vertebral body heights. Degenerative changes of the spine, most marked at L5-S1. Intact sacroiliac joints. Procedure Note Clifford Proctor MD - 10/11/2024 XR LUMBOSACRAL SPINE 4 OR MORE VIEWS Referring clinician's provided indication for this examination in Epic:Pain; no trauma/ + neuropathy, Hx: L4-5 microdiscectomy 2010 COMPARISON: None. FINDINGS: Normal alignment. Normal vertebral body heights. Degenerative changes ofthe spine, most marked at L5-S1. Intact sacroiliac joints. IMPRESSION: No displaced fracture of the lumbar spine. Maday Long LABOR EXPEDITER IMG XR SPINE Final Resul t documented in this encounter Visit Diagnoses Not on filedocumented in this encounter Care Teams Animator Relationship Specialty Start Date End Date Pcp, Unknown PCP - General 10/11/24 documented as of this encounter Additional Source Comments The information contained in this document represents components of the legal health record. It is not the complete legal health record.[facility]
--- NOTE | 2024-12-26 14:15 | MHC.PC.OV ---
Vital Signs 12/26/24 14:24 Height 6 ft Weight 136 lb 2 oz BMI 18.5 BP 118/78 Blood Pressure Location Rt brachial Position Sitting Respiration 16 Pulse 137 H Pulse Source Pulse Oximeter Temp 98.0 F Temp Source Temporal Artery Scan Pulse Oximetry (%) 99 Oxygen Delivery Method Room Air Intake Visit Reasons: physical exam Intake Note: Charlene presents in the office today for her physical exam. Allergies No Known Allergies Allergy (Verified 12/26/24 14:23) Medication List - Last Reconciled 12/26/24 by SAPPHIRE Olmos ondansetron HCl 4 mg PO Q8H PRN sulindac 200 mg PO BID PRN sumatriptan succinate (Imitrex) take 1 tab at onset of headache; if no relief may repeat 1 tab after at least 2 hrs; max = 4 tabs/24 hr PO tramadol 50 mg PO Q8H PRN Tobacco use date assessed: 12/26/24 Dental Screening Dental Screen Date: 12/26/24 Did you have a dental visit in the last 12 months?: Yes Did you have a dental problem in the last 6 months where you did not have access to dental care?: No Was dental information given to patient?: Patient has dentist HPI HPI Comments History of Present Illness Details This is a 34-year-old female with a past medical history of migraines and lumbosacral radiculitis presenting for a physical exam. She is doing physical therapy for chronic lower back pain and lumbosacral radiculitis. She is followed at the neuro spine clinic. She reports minimal improvement with PT. She is taking tramadol and sulindac as needed. She sees Gynecology at [place]. The patient's heart rate today was 137. At another recent appointment it was 117. Patient says all of the females in her family have heart rates that are a little elevated. She is usually low 100s on her apple watch. She thinks it is higher today because she worked overnight and did not get sleep and is dehydrated. Denies chest pain, shortness of breath, dizziness. Patient reports that she does feel intermittent episodes of feeling like her heart is racing. No syncope. Denies leg swelling. ROS: Constitutional: No unexplained weight loss, fever, chills, fatigue or night sweats. Eyes: No vision changes, blurry vision, double vision, eye pain, eye redness, eye discharge. ENT: No hearing loss, sneezing, congestion, runny nose or sore throat. Respiratory: No shortness of breath, cough or sputum production. Cardiovascular: No chest pain, chest pressure or chest discomfort. No pedal edema. Gastrointestinal: No anorexia, nausea, vomiting or diarrhea. No abdominal pain or blood in stool. Genitourinary: No dysuria, hematuria, urinary frequency. Neurologic: No headache, dizziness, syncope, unilateral weakness, ataxia Musculoskeletal: see HPI Hematologic/Lymphatics: No bleeding or bruising. No painful lymph nodes. Skin: No rash or itching. Endocrine: No cold or heat intolerance. No polyuria or polydipsia. Psychiatric: No depression or anxiety. No SI/HI. Physical exam: Constitutional: Alert, in no distress. Head: Normocephalic. Eyes: Pupils are equal, round and reactive to light. Extraocular muscles intact. Ear, Nose and Throat: Canals clear. TMs normal. Normal nasal mucosa. No nasal discharge. No oral lesions. Neck: Supple, Full range of motion. No lymphadenopathy. No palpable thyroid masses. Respiratory: Clear to auscultation. Cardiovascular: Tachycardic. No murmurs. No carotid bruits. Gastrointestinal: Abdomen soft, non-tender, non-distended. Normal bowel sounds. No palpable masses. Neurologic: No focal neurological deficits. Sensation intact bilaterally. Skin: No rashes or lesions. Musculoskeletal: No gross deformities. Normal range of motion. Extremities: Warm and well perfused. No clubbing, cyanosis or edema. Intact peripheral pulses bilaterally. Psychiatric: Normal mood and affect [facility] Medical History (Updated 12/26/24 @ 21:38 by SAPPHIRE Olmos) Routine physical examination Tachycardia Screening for cardiovascular condition Lumbosacral radiculitis Intermittent palpitations Degenerative disc disease, lumbar Migraine Surgical History (Updated 11/07/24 @ 16:02 by Azul Quarles MA) History of microdiscectomy Family History Mother Hypertension Thyroid disease Father Hypertension Social History (Updated 12/26/24 @ 14:24 by Azul Quarles MA) Housing: House Alcohol intake: never Patient Tobacco Use Status: Never used Tobacco e-Cigarette/Vaping Use: Never Used Second Hand Smoke Exposure: No service: No Current occupational status: employed 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 1. Little interest or pleasure in doing things: not at all 2. Feeling down, depressed, or hopeless: not at all 3. Trouble falling or staying asleep, or sleeping too much: not at all 4. Feeling tired or having little energy: not at all 5. Poor appetite or overeating: not at all 6. Feeling bad about yourself - or that you are a failure or have let yourself or your family down: not at all 7. Trouble concentrating on things, such as reading the newspaper or watching television: not at all 8. Moving or speaking so slowly that other people could have noticed. Or the opposite - being so fidgety or restless that you have been moving around a lot more than usual: not at all 9. Thoughts that you would be better off or of hurting yourself in some way: not at all Total score: 0 Depression Screening Interpretation: Negative Depression Screening Done: Yes 27303 - PHQ-9 Billing: Yes Source: Developed by Drs. Linwood Strauss, Sejal Rios, Edwardo Campos and colleagues, with an educational jodie from [employer]. Thrive Questionnaire Date Thrive assessed: 12/26/24 I am a: Patient What is your living situation today?: I have a steady place to live Within the past 12 months, did the food you bought not last and you didn't have the money to get more?: Never true Within the past 12 months, did you worry whether your food would run out before you got money to buy more?: Never true Do you have trouble paying for medicines?: No Do you have trouble getting transportation to medical appointments?: No Do you have trouble paying your heating and electricity bill?: No Do you have trouble taking care of your child, family member or friend?: No Do you have trouble with day-to-day activities such as bathing, preparing meals, shopping, managing finances, etc.?: No Are you currently unemployed and looking for a job?: No Are you interested in more education?: No Please select the resources that you would like help with: None Currently or been in a relationship where the following occur: No concerns reported THRIVE Score: 0 AUDIT C Alcohol Use Questionnaire (AUDIT-C) 1. How often do you have a drink containing alcohol?: Never 3. How often do you have six or more drinks on one occasion?: Never Total Score: 0 CARMINA-7 AMB Questionnaire CARMINA-7 Date CARMINA - 7 assessed: 12/26/24 Feeling nervous, anxious, or on edge: 0 = Not at all Not being able to stop or control worryin = Not at all Worrying too much about different things: 0 = Not at all Trouble relaxin = Not at all Being so restless that it is hard to sit still: 0 = Not at all Becoming easily annoyed or irritable: 0 = Not at all Feeling afraid as if something awful might happen: 0 = Not at all Total CARMINA-7 score (0-4 normal; 5-9 mild; 10-14 moderate; 15-21 severe): 0 Source: Developed by Drs. Linwood Strauss, Sejal Rios, Edwardo Campos and colleagues, with an educational jodie from [employer]. CARMINA-7 Assessment Billing CARMINA-7 Assessment Tool: CARMINA-7 Assessment 77106 Physical exam (Primary Care) Vital Signs: Last Vital Signs Temp 98.0 F 12/26/24 14:24 Pulse 137 H 12/26/24 14:24 Resp 16 12/26/24 14:24 BP 118/78 12/26/24 14:24 Pulse Ox 99 12/26/24 14:24 Oxygen Delivery Method Room Air 12/26/24 14:24 BMI result Body Mass Index 18.5 Tobacco/Smoking Status: Tobacco use Status Tobacco use date assessed 12/26/24 12/26/24 14:28 Patient Tobacco Use Status Never used Tobacco 12/26/24 14:24 e-Cigarette/Vaping Use Never Used 12/26/24 14:24 PHQ-9: PHQ-9 Score PHQ-9: Total score 0 12/26/24 17:40 Depression Screening Interpretation: Negative Thrive Assessment: Date of Thrive Assessment Date Thrive assessed 12/26/24 12/26/24 14:28 Currently or been in a relationship where the following occur: No concerns reported Office Procedures EKG Details: Sinus tachycardia, 120 [place] [id number], Complete Coding Level of Care Code Est Pt Prev Care 18-39y(45115) Diagnoses Routine physical examination Z00.00 Tachycardia R00.0 CPT Codes EKG - CPT: 70155-Bzqzgzewfrgzwxrks, Complete ([id number]) Additional Codes CARMINA-7 Assessment Billing - CARMINA-7 Assessment Tool: CARMINA-7 Assessment 64484 ([id number]) PHQ-9 - 56833 - PHQ-9 Billing: Yes ([id number]) Assessment & Plan Assessment & Plan (1) Routine physical examination: Code(s): Z00.00 - Encounter for general adult medical examination without abnormal findings Category: Medical Plan: Patient is seen today for a routine physical. As part of this visit we reviewed the following issues, which are considered and essential part of preventative health in this age group: - Breast Cancer screening - Annual Handtools Repairer exam - Blood pressure screening annually - Cholesterol screening - Osteoporosis prevention including calcium/vitamin D intake, weight bearing exercise & smoking cessation - Nutritional and exercise counseling - Counseling of injury prevention including fire prevention, smoke alarms and seat belt usage - Screening for depression - Education about skin cancer - Recommendations about immunizations - Recommendation of an eye exam - Screening for substance abuse - Genetic cancer risk screening (2) Tachycardia: Code(s): R00.0 - Tachycardia, unspecified Category: Medical Plan: Initial HR 137. EKG showed sinus tachycardia with HR down to 120. Showed me her apple watch with BP 105 earlier today. Denies any symptoms currently. Check labs. Hydrate. Go to ED if you develop CP, SOB, dizziness, weakness. Avoid caffeine. Ordered holter and echo for further evaluation. Orders: Orders CA echo transthoracic complete Today R00.0 - Tachycardia, unspecified ECG holter monitor 24 hour Today R00.0 - Tachycardia, unspecified AMB EKG-In Office Today R00.0 - Tachycardia, unspecified Medications: Refilled tramadol 50 mg PO Q8H PRN 30 tabs 0RF pain
[2024-12-26 14:24] VITALS: BP 118/78; PULSE 137; RESP 16; TEMP 36.7; O2SAT 99; BMI 18.5
--- OUTSIDE RECORDS SUMMARY | 2024-12-26 17:59 | XMS_ITS | Clinical Summary ---
Author Organization [facility] Address [address] [place] [address] Phone Care Team Providers Care Fisher Pound Net Or Trap Name Role Phone Pcp, Unknown Primary Care [...] Description 10/11/2024 10:12 AM EDT Hospital Encounter [facility] [address] [place] [id number] Maday Long CNP 10/11/2024 9:40 AM EDT Office Visit [facility] at [address] [address] Maday Long CNP Acute right-sided low back [...] SCREENING (18-65 YEARS) 2008 PAP SMEAR 09/12/2011 INFLUENZA VACCINE (#1) 2024 05/15/2013 COVID-19 VACCINE ( season) 2024 06/30/2022, 12/15/2020 Adult Td,Tdap Booster 09/20/2034 09/20/2024 [...] clinician's provided indication for this examination in [facility]: Pain; no trauma/ + neuropathy, Hx: L4-5 microdiscectomy 2010 COMPARISON: None. FINDINGS: Normal alignment. Normal vertebral body heights. Degenerative changes of the spine, most marked at L5-S1. Intact sacroiliac joints. Procedure Note Clifford Proctor MD - 10/11/2024 XR LUMBOSACRAL SPINE 4 OR MORE VIEWS Referring clinician's provided indication for this examination in [facility]:Pain; no trauma/ + neuropathy, Hx: L4-5 microdiscectomy 2010 COMPARISON: None. FINDINGS: Normal alignment. Normal vertebral body heights. Degenerative changes ofthe spine, most marked at L5-S1. Intact sacroiliac joints. IMPRESSION: No displaced fracture of the lumbar spine. Maday Long FOAM CHARGER IMG XR SPINE Final Resul t from Last 3 Months Insurance [employer] BENEFITS ADMINISTRATORS [employer] ADMINISTRATORS [employer] BENEFITS ADMINISTRATORS [employer] BENEFITS ADMINISTRATORS [employer] BENEFITS ADMINISTRATORS Care Teams Fisher Pound Net Or Trap Relationship Specialty Start Date End Date Pcp, Unknown PCP - General 10/11/24 Additional Source Comments The information contained in this document represents components of the legal health record. It is not the complete legal health record.[facility]
== END 2024-12-26 15:26 | disposition home or self-care (01) ==
LOC: HO.HMCFM 14:14
PROVIDERS: PCP Physician Assistant Medical; Visit Provider Physician Assistant Medical
DX: Z00.00 Encounter for general adult medical examination without abnormal findings (principal); R00.0 Tachycardia, unspecified

== ENCOUNTER 2024-12-26 14:13 | Outpatient (REF) | payer OTHER, SELFPAY ==
[2024-12-26 17:32] LABS: Hematocrit 39.0 % (37.0-47.0); Hemoglobin 12.3 g/dl (12.0-16.0); Mean Corpuscular HGB Conc 31.5 g/dl (31.0-35.0); Mean Corpuscular Hemoglobin 26.6 pg (27.0-33.0); Mean Corpuscular Volume 84.2 fL (80.0-98.0); NRBC Abs Auto 0.000 X10*3/uL (0.0-0.012); NRBC Pct Auto 0.0 /100WBC (0.0-0.2); Platelet Count 402 X10*3/uL (160-400); Red Blood Count 4.63 X10*6/uL (4.20-5.50); White Blood Count 6.6 X10*3/uL (4.8-10.8)
[2024-12-26 18:09] LABS: Alanine Aminotransferase 13 U/L (0-31); Albumin Level 4.6 g/dL (3.5-5.0); Alkaline Phosphatase 72 U/L (39-117); Anion Gap 11 (12-20); Aspartate Amino Transferase 24 U/L (5-31); Blood Urea Nitrogen 7 mg/dL (9-16); Calcium 9.4 mg/dL (8.4-10.2); Carbon Dioxide 26 mmol/L (22-29); Chloride 105 mmol/L (96-108); Cholesterol 181 mg/dL (<200); Estimated Glomerular Filt Rate > 60; HDL Cholesterol 73 mg/dL (>40); Iron 49 mcg/dL (30-160); Percent Iron Saturation 13 % (15-50); Potassium 3.4 mmol/L (3.3-5.1); Sodium 139 mmol/L (135-145); Total Iron Binding Capacity 365 mcg/dL (228-428); Total Protein 7.9 g/dL (6.5-8.0); Triglycerides 55 mg/dL (<150); Unsaturated Iron Binding 316 ug/dL
[2024-12-26 18:30] LABS: Ferritin 7 ng/mL (10-122)
[2024-12-26 18:34] LABS: Folate 7.5 ng/mL (> or = 4.0); Vitamin B12 466 pg/mL (200-900)
[2024-12-31 16:34] LABS: Vitamin D 25-OH, D2 <4 ng/mL; Vitamin D 25-OH, D3 27 ng/mL; Vitamin D 25-OH, Total 27 ng/mL (30-100)
== END 2024-12-26 14:14 | disposition home or self-care (01) ==
LOC: HO.WFDLDS 14:13
PROVIDERS: PCP Physician Assistant Medical; Visit Provider Physician Assistant Medical
DX: Z00.00 Encounter for general adult medical examination without abnormal findings (principal); Z13.6 Encounter for screening for cardiovascular disorders; R00.0 Tachycardia, unspecified; G43.909 Migraine, unspecified, not intractable, without status migrainosus; M54.17 Radiculopathy, lumbosacral region; D64.9 Anemia, unspecified
CPT/HCPCS: 36415; 80053; 80061; 82306; 82607; 82728; 82746; 83540; 84443; 85027; 93005; 96127

== ENCOUNTER → 2025-01-20 12:41 | Outpatient (REF) | payer OTHER, SELFPAY ==
--- OUTSIDE RECORDS SUMMARY | 2024-10-11 10:12 | XMS_ITS | Encounter Summary ---
Author Organization [facility] Address [address] [place] [phone] Phone Care Team Providers Care Lens Dotter Name Role Phone Pcp, Unknown Primary Care Provider Unavailabl e Encounter Details Date Type Department Care Team (Late st Contact Info) Description 10/11/2024 10:12 AM EDT Hospital Encounter [facility] [address] [place] [phone] Maday Long CNP [address] [place] [phone] [email or web address] Social History Tobacco Use Types Packs/Day Years [...] clinician's provided indication for this examination in [facility]: Pain; no trauma/ + neuropathy, Hx: L4-5 [...] fracture of the lumbar spine. Maday Long PCT IMG XR SPINE Final Resul t documented in this encounter Visit Diagnoses Not on filedocumented in this encounter Care Teams Lens Dotter Relationship Specialty Start Date End Date Pcp, Unknown PCP - General 10/11/24 documented as of this encounter Additional Source Comments The information contained in this document represents components of the legal health record. It is not the complete legal health record.[facility]
--- NOTE | 2025-01-20 12:47 | CA_ITS ---
Transthoracic Echocardiogram Patient (Last, First, Middle): Charlene Reinoso A Gender: F Date of : 1990 Age: 34 Procedure Date: 01/20/2025 Procedure Type: Transthoracic Echocardiogram Location: OP Height: 182.88 cm Weight: 61.24 kg BSA: 1.80 m2 Heart Rate: bpm BP: 116 / 60 mmHg Vice President Marketing & Development: Referring MD: Neda LEARY Heater Tender: Jigar Zamora MD Symptoms: R00.0 - Tachycardia, unspecified Study Quality: Good ECG Rhythm: Sinus Conclusions: - Normal study Findings Left Ventricle Normal left ventricular size, thickness, and systolic function. The visually estimated ejection fraction is between 60-65%. Diastolic function is normal for age. Right Ventricle Normal right ventricular cavity size and systolic function. Atria Both atria are normal in size. There is no evidence of interatrial shunt. Aortic Valve Normal aortic valve structure and function. There is no aortic valve stenosis. There is no aortic valve regurgitation. Mitral Valve Normal mitral valve structure and function. There is trace mitral valve regurgitation. There is no mitral valve stenosis. Pulmonic Valve The pulmonic valve is likely normal. Tricuspid Valve Normal tricuspid valve structure. There is trace tricuspid valve regurgitation. The right ventricular systolic pressure is normal. The right ventricular systolic pressure is 19 mmHg. Normal right atrial pressure. There is no evidence of pulmonary hypertension. Great Vessels All visible segments of the aorta are normal in size. The pulmonary artery was not well visualized. Venous The inferior vena cava is normal in size and collapses greater than 50% with inspiration. Pericardium/Pleural There is no evidence of pericardial effusion. Prior Study Comparison No prior study available for comparison. Measurements 2D Linear Measurements IVSd: 0.74 0.6-0.9/0.6-1.0 cm LVIDd: 4.39 3.9-5.3/4.2-5.9 cm LVIDd Index: 2.44 2.4-3.2/2.2-3.1 cm/m2 LVIDs: 2.91 2.0-3.6 cm LVPWd: 0.85 0.7-1.1 cm Ao Root: 2.60 2.1-3.5 cm LA Diam: 3.00 2.7-3.8/3.0-4.0 cm LAIDs Index: 1.67 1.5-2.3 cm/m2 LV Mass: 134.75 67-162/88-224 g LV Mass Index: 74.86 43-95/49-115 g/m2 LVOT Diam: 1.90 3.0+(-)1.3 cm 2D Systolic Function EF 4C: 62.10 >55% EF 2C: 62.20 >55% EF BiP: 63.80 >55% Mitral Valve MV Pk E: 0.88 MV PK A: 0.64 MV Decel Time: 185.00 E/A: 1.40 E'Lateral: 13.60 E'Medial: 10.20 E/E' Med: 8.60 E/E' Lat: 6.50 PHT: 54.00 MVA PHT: 4.07 Decel [place]: 4.77 Aortic Valve AoV Pk Willian: 1.68 AoV Mn Willian: 1.21 AoV VTI: 0.34 AoV Pk Grad: 11.00 Aov Mn Grad: 6.00 LA Cont.VTI: 1.86 LVOT LVOT Pk Willian: 1.14 LVOT Mn Willian: 0.78 LVOT VTI: 0.22 LVOT Pk Grad: 5.00 LVOT Mn Grad: 3.00 LVOT Diam: 1.90 LVOT Area: 2.84 Diastolic Function MV Pk E: 0.88 MV Pk A: 0.64 E/A: 1.40 E'Medial: 10.20 E/E' Med: 8.60 E' Laterial: 13.60 E/E' Lat: 6.50 Tricuspid Valve TR Pk Willian: 2.00 TR Pk Grad: 16.00 RA Press: 3.00 RVSP: 19.00 Great Vessels Aorta Ao Root-2D: 2.60 2.0-3.7 cm Ao Asc: 2.70 2.1-3.4 cm Pulmonary Veins Pulm Vein S/D 1.10 Pulmonary Valve PV Pk Willian: 0.98 Peak PV Grad: 4.00 Updated in Other Vendor System with Status of Final Jigar Zamora MD electronically signed on 01/20/2025 4:45:05 PM with status of Final
--- NOTE | 2025-01-20 12:47 | HM_ITS ---
* Total monitoring time one day. * Underlying rhythm is sinus with an average rate of 87/Min. * Rare supraventricular ectopy. * Isolated ventricular ectopic beat. * No significant pauses or high-grade AV blocks. * No patient markers or diary events. MTDD
--- OUTSIDE RECORDS SUMMARY | 2025-01-20 15:07 | XMS_ITS | Clinical Summary ---
Author Organization [facility] Address [address] [place] [address] Care Team Providers Care Multineedle Shirrer Name Role Phone Angie Wilde MD Primary [...] Overview (04/02/2024): IMO update Underweight 05/23/2005 Immunizations Immunization Administration Dates Next Due DTP 07/31/1995, 2,03/25/1991,01/14,1990 [id number] (Pentacel) 2mo to less than 5yo 12/16/1991,03/25/1991,01/14/1991,11/12 Hepatitis B Pediatric (Enger ix B; Recombivax HB) to less than 20 yo 09/18/1996,07/31/1995,06/28/1995 Influenza trivalent, with pr eservative (Fluzone; Afluria) 6mo and older 05/15/2013 Lalina/Novus SARS-CoV-2 COVID -19, vector-nr, rS-Ad26, preservative free [...] Hx Relation Name Status Comments Father Alive [id number] [place] Maternal Grandmother Mother Alive [place] Other [...] Health Maintenance Due Date Last Done Comments HPV Vaccines (1 - 3-dose SCDM series) 2017 HIV Screening 05/23/2019 Hepatitis C Screening 05/23/2019 Social Influencers of Health Screening 05/23/2019 DTaP,Tdap,and Td Vaccines (8 - Td or Tdap) 06/18/2022 06/18/2012, 08/16/2002, 07/31/1995, Additional history exists Depression Screening 04/17/2024 COVID-19 Vaccine ( season) 2024 12/15/2020 Influenza Vaccine (#1) 2024 05/15/2013 Cervical Cancer Screening: HPV 04/03/2028 04/03/2023 RSV Immunization Adult Patients (1 - 1-dose 75+ series) 2065 HIB Vaccines Completed 12/16/1991, 12/1990, 01/14/1991, Additional [...] Cancer Screening: HPV negative, abstracted Historical Provider MD HEALTH MAINTENANCE Final Result from Last 3 Months or Most Recently Relevant to Health Maintenance Care Teams Multineedle Shirrer Relationship Specialty Start Date End Date Angie Wilde MD [facility] [place] [address] PCP - General 03/03/22
--- OUTSIDE RECORDS SUMMARY | 2025-01-20 15:07 | XMS_ITS | Clinical Summary ---
Author Organization [facility] Address [address] [place] [id number] Phone Care Team Providers Care Machine Slat Basket Maker Name Role Phone Pcp, Unknown Primary Care Provider Unavailabl e Allergies No known active allergies Medications aspirin-acetami nophen-caffeine (EXCEDRIN MIGRAINE) 250-250-65 mg per tablet Take by mouth. Active predniSONE (DELTASONE) 20 MG tablet 3 tablets X 3 days, 2 tablets X 3 days , 1 tablet X 3 days 18 tablet 10/11/2024 Active Social History Tobacco Use Types Packs/Day Years [...] this topic Medical Devices Not on file Insurance [employer] ADMINISTRATORS [employer]UE BENEFITS ADMINISTRATORS [employer] BENEFITS ADMINISTRATORS [employer] BENEFITS ADMINISTRATORS [employer] BENEFITS ADMINISTRATORS [facility] BLUE BENEFITS ADMINISTRATORS Care Teams Machine Slat Basket Maker Relationship Specialty Start Date End Date Pcp, Unknown PCP - General 10/11/24 Additional Source Comments The information contained in this document represents components of the legal health record. It is not the complete legal health record.[facility]
== END ==
LOC: HO.CARD 12:41
PROVIDERS: PCP Physician Assistant Medical; Visit Provider Physician Assistant Medical
DX: I47.10 Supraventricular tachycardia, unspecified (principal)
CPT/HCPCS: 93225; 93306

== ENCOUNTER → 2025-01-20 12:47 | Outpatient (BNV) | payer OTHER, SELFPAY | PROVIDERS: PCP Physician Assistant Medical; Visit Provider Internal Medicine Cardiovascular Disease | DX: R00.0 Tachycardia, unspecified (principal) | CPT/HCPCS: 93306 ==

== ENCOUNTER 2025-02-05 07:20 | Outpatient (RCR) | payer OTHER, SELFPAY ==
--- NOTE | 2024-12-09 13:49 | MHC.PT.EP ---
[facility] [place] Office [place] Office [place] Office [address] [phone] F: [phone] F: [phone] F: [phone] F: [phone] Physical Therapy Plan of Care Date of Evaluation: 12/09/24 Date of Surgery: September 2010 Diagnosis: Radiculopathy, lumbosacral region Assessment: Charlene is a 34 year old female who is referred to PT for radiculopathy, lumbosacral region . She reports of having sudden onset of R sided back pain and pain down R LE about 2.5 months back. She denies any trauma or falls but has past h/o lumbar discectomy in 2010. On PT examination she presented with no TTP, 5-6/10 pain in R side low back and R LE upto ankle with standing and walking, decreased lumbar ROM, decrease core and B LE strength, altered pelvic symmetry and altered posture. She lives with her and is independent with all ADLS but has pain with it. 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 She would benefit from skilled PT to address the aforementioned impairments and improve tolerance to functional activities. Frequency and Duration: The patient will be seen 2/week for 4 weeks Short Term Goals: 1. Pt will have 50% decrease in pain which will enable her to roll in bed without pain in 2 weeks. 2. Pt will be able to move her trunk through all planes of motion without pain which will enable her to dress her lower body without pain in 3 weeks Band Bias Machine Operator Goals: 1. Pt will demonstrate an increase in muscle strength by 1 grade which will enable her to perform all work activities and ADLS without pain in 5 weeks 2. Pt will be independent with all HEP for symptom management and maintenance following d/c in 5 weeks Treatment Plan: Modalities to reduce pain, spasms and effusion. Manual therapy to restore motion and function. Therapeutic exercise to improve strength and flexibility. Neuromuscular re-education for posture and balance. Therapeutic activities to return to functional activities of daily living. Electronically signed by: Jeanie Cosme PT DPT Please sign and return to therapist. Thank you for your referral.
--- NOTE | 2025-02-05 09:09 | MHC.PT.DC ---
[facility] [place] Office [place] Office [place] Office [address] Angelito Mota [address] [phone] F: [phone] F: [phone] F: [phone] F: [phone] Physical Therapy Discharge Report Diagnosis: Radiculopathy, lumbosacral region Date of Surgery: September 2010 Date of Evaluation: 12/09/24 Date of Discharge: 02/05/25 Treatments to Date: 14 Cancellations to Date: 0 No Shows to Date: 0 Discharge Status: Achieved Goals Improved Function Independent with HEP Discharge Summary: Charlene has completed 14 PT visits and made significant improvements with PT. She has achieved all goals set for her and is independent with all HEP. She is therefore being d/c from PT today. Charlene was in agreement with the plan. Electronically signed by: Jeanie Cosme, PT DPT Please sign and return to therapist. Thank you for your referral.
== END 2025-02-05 09:10 | disposition home or self-care (01) ==
LOC: HO.PT 07:20
PROVIDERS: PCP Physician Assistant Medical; Visit Provider Physician Assistant
DX: M54.17 Radiculopathy, lumbosacral region (principal)
CPT/HCPCS: 97110; 97112; 97140; 97161; 97530